=== PATIENT | male | born 1985 | race African-American/Black ===

== ENCOUNTER 2017-03-03 03:56 | Emergency (ER) | payer SELFPAY ==
--- NOTE | 2017-03-03 04:24 | PDOC ---
History of Present Illness - General Stated Complaint: PAIN,FEVER,DIZZINESS Time Seen by Provider: 03/03/17 04:11 History Source: Patient Exam Limitations: No Limitations - History of Present Illness Initial Comments: 03/03/17 05:06 PMD: N/A Pmhx: HIV+/ Asthma Pt accompanied with his "best friend" and request that WE DO NOT DISCUSS HIS HIV STATUS. 31 yo M presents to the ER c/o n/v amd subjective fever x6 hours after having "old food". Pt denies any chills, mcgill, lightheadedness, dizziness, cp, sob, abd pain, urinary symptoms/urgency, frequency, hematuria. Patient states after eating 6 hours ago, he felt extremely nauseous and had 2 bouts of vomiting that were nonbilious and nonbloody. Shortly afterwards, he felt a little better. Timing/Duration: 24 hours Associated Symptoms: reports: nausea/vomiting. denies: chest pain, loss of appetite Past History - Past Medical History Allergies/Adverse Reactions: Allergies Allergy/AdvReac Type Severity Reaction Status Date / Time No Known Allergies Allergy Verified 03/03/17 04:36 Home Medications: Ambulatory Orders Unobtainable [Unobtainable] 03/03/17 Review of Systems - Review of Systems Able to Perform ROS?: Yes Comments:: 03/03/17 04:25 CONSTITUTIONAL: Absent: fever, chills, diaphoresis, generalized weakness, malaise, loss of appetite HEENT: Absent: rhinorrhea, nasal congestion, throat pain, throat swelling, difficulty swallowing, mouth swelling, ear pain, eye pain, visual Changes CARDIOVASCULAR: Absent: chest pain, loss of consciousness, palpitations, irregular heart rate, peripheral edema RESPIRATORY: Absent: cough, shortness of breath, dyspnea with exertion, orthopnea, wheezing, stridor, hemoptysis GASTROINTESTINAL: +nausea, vomiting Absent: abdominal pain, abdominal distension, diarrhea, constipation, melena, hematochezia GENITOURINARY: Absent: dysuria, frequency, urgency, hesitancy, hematuria, flank pain, genital pain MUSCULOSKELETAL: Absent: myalgia, arthralgia, joint swelling SKIN: Absent: rash, itching, pallor HEMATOLOGIC/IMMUNOLOGIC: Absent: easy bleeding, easy bruising, lymphadenopathy, frequent infections ENDOCRINE: Absent: unexplained weight gain, unexplained weight loss, heat intolerance, cold intolerance NEUROLOGIC: Absent: headache, focal weakness or paresthesias, dizziness, unsteady gait, seizure, mental status changes, bladder or bowel incontinence PSYCHIATRIC: Absent: anxiety, depression, suicidal or homicidal ideation, hallucinations. Is the patient limited [place] proficient: No *Physical Exam - Physical Exam Comments: 03/03/17 04:26 GENERAL: Well developed, well nourished. Awake and alert. No acute distress. HEENT: Normocephalic, atraumatic. PERRLA, EOMI. No conjunctival pallor. Sclera are non- icteric. Moist mucous membranes. Oropharynx is clear. NECK: Supple. Full ROM. No JVD. Carotid pulses 2+ and symmetric, without bruits. No thyromegaly. No lymphadenopathy. CARDIOVASCULAR: Regular rate and rhythm. No murmurs, rubs, or gallops. Distal pulses are 2+ and symmetric. PULMONARY: No evidence of respiratory distress. Lungs clear to auscultation bilaterally. No wheezing, rales or rhonchi. ABDOMINAL: Soft. Non-tender. Non-distended. No rebound or guarding. No organomegaly. Normoactive bowel sounds. MUSCULOSKELETAL Normal range of motion at all joints. No bony deformities or tenderness. No CVA tenderness. EXTREMITIES: No cyanosis. No clubbing. No edema. No calf tenderness. SKIN: Warm and dry. Normal capillary refill. No rashes. No jaundice. NEUROLOGICAL: Alert, awake, appropriate. Cranial nerves 2-12 intact. No deficits to light touch and temperature in face, upper extremities and lower extremities. No motor deficits in the in face, upper extremities and lower extremities. Normoreflexic in the upper and lower extremities. Normal speech. Toes are down- going bilaterally. Gait is normal without ataxia. PSYCHIATRIC: Cooperative. Good eye contact. Appropriate mood and affect. ED Treatment Course - LABORATORY CBC & Chemistry Diagram: 03/03/17 05:02 03/03/17 05:02 *DC/Admit/Observation/Transfer Diagnosis at time of Disposition: Dehydration Nausea & vomiting Qualifiers: Vomiting type: unspecified Vomiting Intractability: non-intractable Qualified Code(s): R11.2 - Nausea with vomiting, unspecified - Discharge Dispostion Disposition: HOME Condition at time of disposition: Stable Admit: No - Patient Instructions Printed Discharge Instructions: DI for Nausea -- Adult, DI for Vomiting -- Adult Additional Instructions: Rest Increase fluids Follow up with your physician Return to the ER for severe/persistent/worsening symptoms - Post Discharge Activity Work/School Note: Back to Work Progress Note - Progress Note Progress Note: 0623hrs: Pt feels better and wishes to be d/c
[2017-03-03] MEDS ORDERED: SODIUM CHLORIDE 1,000 ML IV STA (04:25)
[2017-03-03 04:40] VITALS: BP 121/77; PULSE 98; TEMP 97.6
[2017-03-03] MEDS ORDERED: METOCLOPRAMIDE HCL INJECTION 10 MG/2 ML VIAL IVPB ONE (05:15)
[2017-03-03 05:16] LABS: BASOPHIL 0.1 % (0-2.0); MCH 26.6 pg (25.7-33.7); MCHC 32.5 g/dl (32.0-35.9); MEAN CELL VOLUME 81.9 fl (80-96); MEAN PLT VOLUME 8.4 fl (7.5-11.1); NEUTROPHILS 67.5 % (42.8-82.8); RDW 14.3 % (11.9-15.9); WHITE BLOOD COUNT 8.3 K/mm3 (4.0-10.0)
[2017-03-03] MEDS ORDERED: METOCLOPRAMIDE HCL INJECTION 10 MG/2 ML VIAL ONE (05:18)
[2017-03-03 05:45] LABS: ALBUMIN 4.5 g/dl (3.4-5.0); ANION GAP 10 (8-16); BILIRUBIN,TOTAL 0.6 mg/dL (0.2-1.0); CALCIUM 9.8 mg/dL (8.5-10.1); CO2 27 mmol/L (21-32); CREATININE 1.4 mg/dL (0.7-1.3); GLUCOSE,RANDOM 107 mg/dL (74-106); SGPT/ALT 26 U/L (12-78); TOT PROT 9.8 g/dl (6.4-8.2)
[2017-03-03 05:46] LABS: ALK PHOS 98 U/L (45-117)
[2017-03-03 05:47] LABS: SGOT/AST 58 U/L (15-37)
[2017-03-03 06:18] LABS: PLATELET COUNT 520 K/MM3 (134-434); PLATELET ESTIMATE INCREASED (NORMAL)
[2017-03-03 06:19] LABS: PLATELET COMMENT2 NO CLUMPING NOTED
== END 2017-03-03 07:14 | disposition home or self-care (01) ==
LOC: JER 03:56
PROC: 3E0337Z Introduction of Electrolytic and Water Balance Substance into Peripheral Vein, Percutaneous Approach (ICD-10-PCS; principal; 2017-03-03)
PROC: 3E033GC Introduction of Other Therapeutic Substance into Peripheral Vein, Percutaneous Approach (ICD-10-PCS; 2017-03-03)
DX: E86.0 Dehydration (principal)
CPT/HCPCS: 36415; 80053; 85025; 99281-25; 99282-25